=== PATIENT | female | born 1970 | race Caucasian/White ===

== ENCOUNTER 2021-01-07 14:02 | Emergency (ER) | payer OTHER ==
[2021-01-07] MEDS ORDERED: fentaNYL 100 MCG/2 ML SDV IM ONE (14:30)
[2021-01-07] MEDS ORDERED: fentaNYL 100 MCG/2 ML SDV ONE (14:31)
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
[2021-01-07] MEDS ORDERED: HYDROmorphone 1 MG/ML Syringe IM ONE (15:11)
[2021-01-07] MEDS ORDERED: Ondansetron 4 MG Tab.DIS PO ONE (16:14)
[2021-01-07] MEDS ORDERED: Ondansetron 4 MG Tab.DIS ONE (16:15)
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
== END 2021-01-07 16:28 | disposition home or self-care (01) ==
LOC: JP.ED 14:02
DX: S82.141A Displaced bicondylar fracture of right tibia, initial encounter for closed fracture (principal); E03.9 Hypothyroidism, unspecified; Z79.899 Other long term (current) drug therapy; W22.09XA Striking against other stationary object, initial encounter
CPT/HCPCS: 29505; 73501; 73562; 96372; 99284; A9270; J1170; J3010